=== PATIENT | male | born 1970 | race African-American/Black ===

== ENCOUNTER 2024-06-16 23:21 | Emergency (ER) | payer SELFPAY | END 2024-06-17 01:03 | disposition home or self-care (01) | LOC: MW.ED 23:21 | DX: M79.601 Pain in right arm (principal); Z75.8 Other problems related to medical facilities and other health care | CPT/HCPCS: 73030-26-RT; 73030-RT; 73060-26-RT; 73060-RT; 73070-26-RT; 73070-RT; 99283 ==